=== PATIENT | male | born 1960 | race Caucasian/White ===

== ENCOUNTER 2020-07-05 12:29 | Outpatient (CLI) | payer OTHER | END 2020-07-05 12:30 | disposition home or self-care (01) | LOC: CSHULT 12:29 | PROVIDERS: ATTEND Surgery | DX: Q55.9 Congenital malformation of male genital organ, unspecified (principal); N50.89 Other specified disorders of the male genital organs; Z98.890 Other specified postprocedural states; I86.1 Scrotal varices | CPT/HCPCS: 76870; 93976 ==

== ENCOUNTER 2022-04-19 14:19 | Outpatient (CLI) | payer OTHER ==
[~2022-04-19 14:19] MED LIST: Magnevist 469MG/ML 20 ML VIAL ONE
== END 2022-04-19 14:20 | disposition home or self-care (01) ==
LOC: CSHMRI 14:19
PROVIDERS: ATTEND Internal Medicine
DX: R43.9 Unspecified disturbances of smell and taste (principal)
CPT/HCPCS: 70553

== ENCOUNTER 2024-02-06 14:29 | Emergency (ER) | payer OTHER ==
[2024-02-06 16:01] LABS: ALT (SGPT) 25 U/L (8-55); AST (SGOT) 23 U/L (5-34); Albumin 3.9 g/dL (3.4-4.8); Alkaline Phosphatase 48 U/L (40-110); Anion Gap 11 mmol/L (10-20); BUN (Urea Nitrogen) 11 mg/dL (8.4-25.7); Bilirubin, Total 0.7 mg/dL (0.2-1.2); Calc. Creatinine Clearance 0 mL/min (70-130); Calcium 9.2 mg/dL (7.8-10.44); Carbon Dioxide 25 mmol/L (23-31); Chloride 107 mmol/L (98-107); Estimated GFR 98; Globulin 2.4 g/dL (2.4-3.5); Glucose 134 mg/dL (80-115); Lipase 21 U/L (8-78); Potassium 3.9 mmol/L (3.5-5.1); Protein, Total 6.3 g/dL (5.8-8.1); Sodium 139 mmol/L (136-145)
[2024-02-06 16:07] LABS: #Basophils 0.02 10x3/uL (0.0-0.2); #Eosinophils 0.08 10x3/uL (0.0-0.5); #Monocytes 0.31 10x3/uL (0.0-1.1); #Neutrophils 7.41 10x3/uL (1.5-8.4); %Basophils 0.2 % (0.0-2.0); %Eosinophils 0.9 % (0.0-6.0); %Lymphocytes 6.9 % (18.0-47.0); %Monocytes 3.7 % (0.0-10.0); %Neutrophils 87.9 % (40.0-75.0); Hematocrit 44.1 % (38.8-50.0); Hemoglobin 14.7 g/dL (13.5-17.5); Mean Corpuscular HGB CONC 33.3 g/dL (32.0-36.0); Mean Corpuscular Hemoglobin 31.3 pg (27.0-33.0); Mean Platelet Volume 8.6 fL (7.4-10.4); Platelet Count 212 10x3/uL (150-450); RBC Distribution Width 12.1 % (11.5-14.5); Red Blood Cell (RBC) Count 4.69 10x6/uL (4.32-5.72); Troponin I Less than 0.010 ng/mL (< 0.028); White Blood Cell (WBC) Count 8.4 10x3/uL (3.5-10.5)
== END 2024-02-06 16:43 | disposition home or self-care (01) ==
LOC: CSHERS 14:29
DX: R10.10 Upper abdominal pain, unspecified (principal); R11.2 Nausea with vomiting, unspecified; I10 Essential (primary) hypertension; E78.5 Hyperlipidemia, unspecified; Z79.82 Long term (current) use of aspirin; Z79.899 Other long term (current) drug therapy
CPT/HCPCS: 80053; 83690; 84484; 85025; 93005; 99284

== ENCOUNTER 2024-12-11 11:39 | Outpatient (CLI) | payer OTHER | END 2024-12-11 11:40 | disposition home or self-care (01) | LOC: CSHDTY/OP 11:39 | PROVIDERS: ATTEND Surgery | DX: Z71.3 Dietary counseling and surveillance (principal); E66.01 Morbid (severe) obesity due to excess calories | CPT/HCPCS: 97802 ==

== ENCOUNTER 2025-02-17 11:21 | Outpatient (CLI) | payer OTHER ==
[2025-02-17 12:37] LABS: #Basophils 0.03 10x3/uL (0.0-0.2); #Eosinophils 0.14 10x3/uL (0.0-0.5); #Monocytes 0.38 10x3/uL (0.0-1.1); #Neutrophils 2.25 10x3/uL (1.5-8.4); %Basophils 0.8 % (0.0-2.0); %Eosinophils 3.7 % (0.0-6.0); %Lymphocytes 25.9 % (18.0-47.0); %Monocytes 10.0 % (0.0-10.0); %Neutrophils 59.3 % (40.0-75.0); Hematocrit 42.9 % (38.8-50.0); Hemoglobin 13.6 g/dL (13.5-17.5); Mean Corpuscular Hemoglobin 27.6 pg (27.0-33.0); Mean Corpuscular Volume 87.2 fL (81.2-95.1); Platelet Count 257 10x3/uL (150-450); Red Blood Cell (RBC) Count 4.92 10x6/uL (4.32-5.72); White Blood Cell (WBC) Count 3.79 10x3/uL (3.5-10.5)
[2025-02-17 12:58] LABS: ALT (SGPT) 13 U/L (Less than 45); AST (SGOT) 21 U/L (11-34); Albumin 4.2 g/dL (3.1-4.5); Alkaline Phosphatase 63 U/L (40-110); Anion Gap 11 mmol/L (10-20); BUN (Urea Nitrogen) 12 mg/dL (8.4-25.7); Bilirubin, Total 0.6 mg/dL (0.3-1.2); Calc. Creatinine Clearance 0 mL/min (70-130); Calcium 9.0 mg/dL (7.8-10.44); Carbon Dioxide 26 mmol/L (23-31); Chloride 105 mmol/L (98-107); Globulin 2.8 g/dL (2.4-3.5); Glucose 98 mg/dL (80-115); Potassium 4.3 mmol/L (3.5-5.1); Sodium 138 mmol/L (136-145)
== END 2025-02-17 11:22 | disposition home or self-care (01) ==
LOC: CSHLAB 11:21
PROVIDERS: ATTEND Surgery
DX: Z01.812 Encounter for preprocedural laboratory examination (principal); K44.9 Diaphragmatic hernia without obstruction or gangrene
CPT/HCPCS: 80053; 85025